=== PATIENT | female | born 1980 | race African-American/Black ===

== ENCOUNTER 2022-01-06 10:07 | Day surgery (SDC) | payer OTHER ==
[2021-12-28 15:32] VITALS: BMI 26.2
[2022-01-06 10:41] VITALS: TEMP 97
[2022-01-06 12:27] VITALS: BP 121/62; PULSE 72
== END 2022-01-06 13:11 | disposition home or self-care (01) ==
LOC: FASU-ENDO 10:07
PROVIDERS: ATTEND Internal Medicine Gastroenterology
PROC: 0DB68ZX Excision of Stomach, Via Natural or Artificial Opening Endoscopic, Diagnostic (ICD-10-PCS; 2022-01-06)
PROC: 0DB48ZX Excision of Esophagogastric Junction, Via Natural or Artificial Opening Endoscopic, Diagnostic (ICD-10-PCS; 2022-01-06)
PROC: 0DB98ZX Excision of Duodenum, Via Natural or Artificial Opening Endoscopic, Diagnostic (ICD-10-PCS; principal; 2022-01-06 11:53)
DX: K29.50 Unspecified chronic gastritis without bleeding (principal); K20.90 Esophagitis, unspecified without bleeding; K31.89 Other diseases of stomach and duodenum; R10.13 Epigastric pain
CPT/HCPCS: 84703; 88305-TC; 88342-TC